=== PATIENT | female | born 1950 | race Asian ===

== ENCOUNTER → 2017-04-01 | Outpatient (CLI) | payer OTHER | LOC: BRMIMAGING 14:56 | PROVIDERS: ATTEND Family Medicine | DX: Z13.820 Encounter for screening for osteoporosis (principal); M85.80 Other specified disorders of bone density and structure, unspecified site; E78.5 Hyperlipidemia, unspecified; I10 Essential (primary) hypertension ==

== ENCOUNTER → 2017-04-01 | Outpatient (CLI) | payer OTHER | LOC: CIMAGING 10:58 | PROVIDERS: ATTEND Family Medicine | DX: Z12.31 Encounter for screening mammogram for malignant neoplasm of breast (principal) | CPT/HCPCS: G0202 ==

== ENCOUNTER 2018-09-27 14:47 | Emergency (ER) | payer OTHER ==
[2018-09-27] MEDS ORDERED: ONDANSETRON 4 MG/2 ML VIAL IVP ONE (15:05)
[2018-09-27] MEDS ORDERED: NS 1,000 ML IV ONE (15:05)
[2018-09-27] MEDS ORDERED: FAMOTIDINE 20 MG/NACL 50 ML IV ONE (15:05)
[2018-09-27] MEDS ORDERED: PANTOPRAZOLE SODIUM 40 MG VIAL IVP ONE (15:05)
--- NOTE | 2018-09-27 15:10 | EDPHY ---
H & P Time Seen by Provider: 09/27/18 14:56 HPI/ROS: HPI Epigastric abdominal pain, vomiting, cough. 68-year-old female by private vehicle with her . This patient presents to the emergency department with complaint of epigastric pain with nausea and vomiting, pain described as burning and aching and similar to pain associated with exacerbation of her peptic ulcers. She reports onset of pain about 3 days ago in conjunction with a intermittent nonproductive cough, she has also had diarrhea. She denies any black or bloody stool. She reports that she has not been able to keep anything down for the last 12-24 hours secondary to nausea and vomiting. No bloody emesis or coffee-ground emesis reported. She also describes feeling very fatigued. ROS: Constitutional: No fever, no chills. As above. Eyes: No discharge. No changes in vision. ENT: As above. Respiratory: As above. No shortness of breath. Cardiac: No chest pain, no palpitations. Gastrointestinal: As above. Genitourinary: No hematuria. No dysuria or increased frequency with urination. Musculoskeletal: No back pain. No neck pain. No myalgias or arthralgias. Skin: No rashes. Neurological: No headache. No focal weakness or altered sensation. Past medical history: Hyperlipidemia, GERD, peptic ulcer disease, hypertension , renal cysts, hiatal hernia. Social history: Nonsmoker. She denies alcohol. She is here with her . Physical Exam: General Appearance: Alert, no distress. This patient is responding to questions appropriately and in full sentences. This patient appears well- hydrated and well-nourished. Eyes: Pupils equal and round no pallor or injection. No lid edema, erythema or injection. Respiratory: There are no retractions, lungs are clear to auscultation with good air movement bilaterally. No tachypnea. Cardiovascular: Regular rate and rhythm. No murmur. Gastrointestinal: Abdomen is soft with mild epigastric tenderness on palpation otherwise she does not have significant tenderness on palpation of her abdomen throughout, no masses, bowel sounds normal. No focal tenderness at McBurney's point. No Bright sign. Neurological: Motor sensory function is grossly intact. Cranial nerves are normal. Gait is normal. Skin: Warm and dry, no rashes. Musculoskeletal: Neck is supple and nontender. Extremities are symmetrical. All joints range without pain or impingement. Psychiatric: No agitation. No depression. Database: EKG: EKG time is 3:21 p.m.; EKG shows a narrow complex normal sinus rhythm with a ventricular rate of 66. The NE, QRS, QT intervals are within normal limits. There are no ST-T wave changes indicative of ischemic or injury pattern. No evidence of right heart strain. Interpreted by me. Imaging: Chest x-ray PA and lateral: No free air. No evidence of infiltrate or pneumothorax. The cardiac mediastinal silhouette is unremarkable. Bronchitis noted. No other acute cardiopulmonary disease process noted. Right upper quadrant ultrasound: Fatty liver/steatosis, no gallstones, otherwise an unremarkable study. Results were discussed with staff radiologist Dr. Werner Madsen. Procedures: Emergency department course: Triage vital signs reviewed. She is moderately hypertensive. Vital signs are otherwise normal. She is afebrile. IV was placed. She was started on IV normal saline with 1 L to be given over the next hour. She will initially received 20 mg of IV Pepcid, 40 mg of IV Protonix and 4 mg of IV Zofran. IV normal saline started with 1-2 L to be given over the next 1-2 hours. EKG obtained and reviewed by myself. Patient is flu A positive. 5:00 p.m., the patient was re-evaluated, resting comfortably at this time. She is feeling much better. Results of her diagnostic workup discussed. She falls outside of the treatment window recommended for Tamiflu. She feels comfortable going home and I feel she is safe for discharge. Repeat abdominal exam she is soft, nontender nondistended. She has been tolerating oral fluids after antiemetics as noted above. I will prescribe her both Zofran and omeprazole. She will follow up with her primary care physician early this week for re- evaluation. I have ordered a hepatitis panel on her. She has a transaminitis. She tells me that she does not drink alcohol. She has no prior history of hepatitis that she is aware of. As noted above her ultrasound results are unremarkable except for some steatosis. She is in agreement with this plan. Return to emergency department precautions were thoroughly reviewed with her. All of her questions were answered. She was discharged from the emergency department in good condition with her . Differential Diagnosis: The differential diagnosis on this patient includes but is not limited to gastroenteritis, GERD, peptic ulcer disease, influenza, hepatitis. Perforated peptic ulcer, cholecystitis, pancreatitis, bowel obstruction, gastrointestinal bleeding unlikely. This represents a partial list of diagnoses considered. These considerations are based on history, physical exam, past history, reassessment and diagnostic testing. Smoking Status: Never smoked Constitutional: Initial Vital Signs Temperature (C) 36.8 C 09/27/18 14:53 Heart Rate 70 09/27/18 14:53 Respiratory Rate 16 09/27/18 14:53 Blood Pressure 164/81 H 09/27/18 14:53 O2 Sat (%) 97 09/27/18 14:53 O2 Delivery Mode Room Air Allergies/Adverse Reactions: iodine Allergy (Verified 04/17/16 12:54) Home Medications: Medication Instructions Recorded TAGAMET HB 01/15/11 Pravastatin Sodium 05/27/15 Hydrocodone/APAP 5/325 [[place] 1 - 2 tab PO Q4PRN PRN #20 tab 04/17/16 5/325 (*)] HCTZ (*) 09/27/18 Ondansetron Odt [Zofran Odt 4 mg 4 mg PO Q4PRN PRN #14 tab 09/27/18 (*)] Pantoprazole Sodium [Protonix] 40 mg PO DAILY #30 tab 09/27/18 Medical Decision Making - Diagnostics Imaging Results: Imaging Impressions Abdomen Ultrasound 09/27/18 15:06 Impression: 1. No cholelithiasis or biliary ductal dilation. 2. Moderate hepatic steatosis with focal fatty sparing near the gallbladder fossa. Findings discussed with Mathew Swann MD at 16:28 hour, 09/27/2018. Chest X-Ray 09/27/18 15:06 Impression: Central bronchitis with mild interstitial thickening in the lung bases bilaterally. - Data Points Laboratory Results: Laboratory Results 09/27/18 15:00 09/27/18 15:00 09/27/18 09/27/18 09/27/18 15:25 15:00 15:00 WBC 4.58 10^3/uL 10^3/uL (3.80-9.50) RBC 4.37 10^6/uL 10^6/uL (4.18-5.33) Hgb 14.4 g/dL g/dL (12.6-16.3) Hct 40.5 % % (38.0-47.0) MCV 92.7 fL fL (81.5-99.8) MCH 33.0 pg pg (27.9-34.1) MCHC 35.6 g/dL g/dL (32.4-36.7) RDW 11.9 % % (11.5-15.2) Plt Count 224 10^3/uL 10^3/uL (150-400) MPV 11.4 fL fL (8.7-11.7) Neut % (Auto) 47.2 % % (39.3-74.2) Lymph % (Auto) 41.0 % % (15.0-45.0) [place] % (Auto) 9.2 % % (4.5-13.0) Eos % (Auto) 1.1 % % (0.6-7.6) Baso % (Auto) 1.3 % % (0.3-1.7) Nucleat RBC Rel Count 0.0 % % (0.0-0.2) Absolute Neuts (auto) 2.16 10^3/uL 10^3/uL (1.70-6.50) Absolute Lymphs (auto) 1.88 10^3/uL 10^3/uL (1.00-3.00) Absolute Monos (auto) 0.42 10^3/uL 10^3/uL (0.30-0.80) Absolute Eos (auto) 0.05 10^3/uL 10^3/uL (0.03-0.40) Absolute Basos (auto) 0.06 10^3/uL 10^3/uL (0.02-0.10) Absolute Nucleated RBC 0.00 10^3/uL 10^3/uL (0-0.01) Immature Gran % 0.2 % % (0.0-1.1) Immature Gran # 0.01 10^3/uL 10^3/uL (0.00-0.10) Sodium 135 mEq/L mEq/L (135-145) Potassium 3.6 mEq/L mEq/L (3.5-5.2) Chloride 101 mEq/L mEq/L (97-110) Carbon Dioxide 23 mEq/l mEq/l (22-31) Anion Gap 11 mEq/L mEq/L (6-14) BUN 14 mg/dL mg/dL (7-23) Creatinine 0.7 mg/dL mg/dL (0.6-1.0) Estimated GFR > 60 Glucose 127 mg/dL H mg/dL (70-100) Calcium 9.4 mg/dL mg/dL (8.5-10.4) Total Bilirubin 0.7 mg/dL mg/dL (0.1-1.4) Conjugated Bilirubin 0.4 mg/dL mg/dL (0.0-0.5) Unconjugated Bilirubin 0.3 mg/dL mg/dL (0.0-1.1) AST 136 IU/L H IU/L (14-46) ALT 169 IU/L H IU/L (9-52) Alkaline Phosphatase 97 IU/L IU/L (38-126) Total Protein 8.2 g/dL g/dL (6.3-8.2) Albumin 4.7 g/dL g/dL (3.5-5.0) Lipase 47 IU/L IU/L (23-300) Nasal Influenza A PCR FLU A DETECTED H (NEGATIVE) Nasal Influenza B PCR NEGATIVE FOR FLU B (NEGATIVE) Medications Given: Discontinued Medications Sodium Chloride (Ns) 1,000 mls @ 0 mls/hr IV EDNOW ONE; Wide Open PRN Reason: Protocol Stop: 09/27/18 15:06 Last Admin: 09/27/18 15:18 Dose: 1,000 mls Famotidine/Sodium Chloride (Pepcid 20 Mg (Premix)) 50 mls @ 200 mls/hr IV EDNOW ONE Stop: 09/27/18 15:19 Last Admin: 09/27/18 15:19 Dose: 50 mls Ondansetron HCl (Zofran) 4 mg IVP EDNOW ONE Stop: 09/27/18 15:06 Last Admin: 09/27/18 15:21 Dose: 4 mg Pantoprazole Sodium (Protonix) 40 mg IVP EDNOW ONE Stop: 09/27/18 15:06 Last Admin: 09/27/18 15:20 Dose: 40 mg Departure - Departure Disposition: Home, Routine, Self-Care Clinical Impression: Gastroenteritis, Influenza, Bronchitis, Transaminitis Condition: Good Instructions: Influenza (ED), Gastroenteritis (ED) Additional Instructions: Read and follow provided instructions. Follow-up with your primary care physician early this week for re-evaluation as discussed. I want your primary care physician and recheck your liver function tests. Also your primary care physician is to follow up on a hepatitis test that I have ordered for you and the results should be available this coming week. Take medication as prescribed for nausea. Do not take Tylenol for fever. Ibuprofen dosin mg every 6 hours with meals for the next 3 days only. Take only as needed for fever, muscle aches and joint aches. Return to the emergency department for worsening symptoms, vomiting and inability to keep fluids down despite medications, worsening abdominal pain, high fever, difficulty breathing or other serious concerns. Referrals: Thong Atkins DO [Primary Care Provider] - As per Instructions Prescriptions: Ondansetron Odt [Zofran Odt 4 mg (*)] 4 mg PO Q4PRN PRN #14 tab PRN Reason: For Nausea & Vomiting Pantoprazole Sodium [Protonix] 40 mg PO DAILY #30 tab
[2018-09-27 15:19] LABS: PLATELET COUNT 224 10^3/uL (150-400)
[2018-09-27 17:19] VITALS: BP 153/79
[2018-09-29 10:08] LABS: HEPATITIS A ANTIBODY IGM (BCH) NEGATIVE (NEGATIVE); HEPATITIS B CORE AB IGM NEGATIVE (NEGATIVE); HEPATITIS B SURFACE ANTIGEN NEGATIVE (NEGATIVE)
[2018-09-29 10:19] LABS: HEPATITIS C ANTIBODY TOTAL NEGATIVE (NEGATIVE)
== END 2018-09-27 17:19 | disposition home or self-care (01) ==
DX: J10.1 Influenza due to other identified influenza virus with other respiratory manifestations (principal); K52.9 Noninfective gastroenteritis and colitis, unspecified; J40 Bronchitis, not specified as acute or chronic; R74.0 Nonspecific elevation of levels of transaminase and lactic acid dehydrogenase [LDH]; K76.0 Fatty (change of) liver, not elsewhere classified; I10 Essential (primary) hypertension; E78.5 Hyperlipidemia, unspecified; K21.9 Gastro-esophageal reflux disease without esophagitis; E86.9 Volume depletion, unspecified
CPT/HCPCS: 71046; 76705; 96374; 96375; 99285; J2405; G0472